=== PATIENT | female | born 1955 | race Caucasian/White ===

== ENCOUNTER 2018-08-28 13:10 | Emergency (ER) | payer OTHER ==
[~2018-08-28] VITALS: Ht 157.5 cm; Wt 76.2 kg
[2018-08-28 13:37] VITALS: BP_SYST 151
[2018-08-28 14:44] LABS: BASOPHILS # (AUTO) 0.1 K/uL (0.0-0.2); BASOPHILS % (AUTO) 0.7 % (0.0-2.0); EOSINOPHILS # (AUTO) 0.2 K/uL (0.0-0.4); HEMATOCRIT 47.3 % (36-48); LYMPHOCYTES # (AUTO) 2.3 K/uL (1.0-5.5); LYMPHOCYTES % (AUTO) 19.6 % (20.5-51.5); MEAN CORPUSCULAR HEMOGLOBIN 29 pg (27-31); MEAN CORPUSCULAR HGB CONC 34 % (32-36); MEAN CORPUSCULAR VOLUME 87 fL (79.0-98.0); MONOCYTES % (AUTO) 8.3 % (1.7-9.3); NEUTROPHILS # (AUTO) 8.2 K/uL (1.8-7.7); NEUTROPHILS % (AUTO) 69.4 % (40.0-70.0); PLATELET COUNT (AUTO) 337 K/uL (130-430); RED BLOOD CELL COUNT(AUTO) 5.47 MIL/uL (4.2-6.2); RED CELL DISTRIBUTION WIDTH 13.8 % (9.0-15.0); WHITE BLOOD COUNT (AUTO) 11.9 K/uL (4.8-10.8)
[2018-08-28 14:52] LABS: CALCIUM 9.6 mg/dL (8.4-11.0); CREATININE 0.83 mg/dL (0.55-1.30); POTASSIUM 3.9 mmol/L (3.5-5.1)
[2018-08-28 14:55] LABS: INR 0.9 (0.8-1.2); PROTHROMBIN TIME 9.1 SECS (9.5-12.5)
[2018-08-28 14:56] LABS: ALBUMIN 4.1 g/dL (3.4-4.8); TOTAL BILIRUBIN 0.3 mg/dL (0.0-1.0)
--- NOTE | 2018-08-28 17:20 | NUR ---
CALLED TO COME BACK TO [facility] BED AND PT IS OUTSIDE ON SMOKE BREAK
--- NOTE | 2018-08-28 17:50 | NUR ---
BROUGHT BACK TO BED #4 AND REPORT GIVEN TO JUS
--- NOTE | 2018-08-28 18:20 | NUR ---
Patient arrived via POV, AAOx4, and ambulatory with slow gait. Patient c/c of 2 week history of right ankle pain, and swelling bilaterally. No recent trauma or injursy noted, pain is at 1/10, dull pain sensation. Pain is worse with walking and movement. OTC Aleve has been taken at home, no relief noted. No numbness, tingling, bruising, deformity or warmth noted. Will continue to follow up and monitor.
--- NOTE | 2018-08-28 18:25 | NUR ---
ER at bedside examining patient.
[2018-08-28 19:20] VITALS: BP_SYST 140
--- NOTE | 2018-08-28 19:20 | NUR ---
Patient given written and verbal discharge instructions and verbalizes understanding. ER MD discussed with patient the results and treatment provided. Patient in stable condition. ID arm band removed. Rx of Keflex, Lasix, Motrin given. Patient educated on pain management and to follow up with PMD. Pain Scale 0. Opportunity for questions provided and answered. Medication side effect fact sheet provided. Patient left ER in no acute distress, able to ambulate without difficulty with slow, steady gait. Patient tolerating demond wrap to right ankle, patient refused crutches, Dr Mario aware.
== END 2018-08-28 19:20 | disposition home or self-care (01) ==
LOC: SED 13:10
DX: R60.0 Localized edema (principal); M25.571 Pain in right ankle and joints of right foot; I10 Essential (primary) hypertension; E78.00 Pure hypercholesterolemia, unspecified; F20.9 Schizophrenia, unspecified
CPT/HCPCS: 36415; 71045; 80053; 83880; 84484; 85025; 85610-TC; 85730-TC; 93005; 99283; 99284